=== PATIENT | male | born 1930 | race Caucasian/White ===

== ENCOUNTER 2017-06-10 14:53 | Emergency (ER) | payer MEDICARE, BC, OTHER ==
[2017-06-10 15:01] VITALS: TEMP 97.1
--- NOTE | 2017-06-10 15:32 | ED ---
General Adult HPI - General Chief complaint: Fall Stated complaint: Fall Time Seen by Provider: 06/10/17 15:00 Source: EMS, RN notes reviewed Mode of arrival: EMS Limitations: altered mental status - History of Present Illness Initial comments: This is an 87-year-old male presents emergency Department because he fell forward out of his wheelchair and bumped his head. According to EMS the patient did not lose consciousness. Patient is on Coumadin. There is no other history available at this time since the patient is unable to give any history which is his baseline. And there is no family with the patient. Per EMS the patient is a no code - Related Data Home Medications Medication Instructions Recorded Confirmed Acetaminophen [Tylenol] 650 mg PO Q6H PRN 06/10/17 06/10/17 Albuterol Nebulized [Ventolin 2.5 mg INHALATION RT-HS 06/10/17 06/10/17 Nebulized] Albuterol Nebulized [Ventolin 2.5 mg INHALATION RT-Q6H PRN 06/10/17 06/10/17 Nebulized] Aspirin [Children's Aspirin] 81 mg PO HS 06/10/17 06/10/17 Donepezil [Aricept] 10 mg PO HS 06/10/17 06/10/17 Furosemide [Lasix] 20 mg PO DAILY 06/10/17 06/10/17 Isosorbide Mononitrate ER [Imdur] 15 mg PO DAILY 06/10/17 06/10/17 Lisinopril [Zestril] 10 mg PO BID 06/10/17 06/10/17 Loratadine [Claritin] 10 mg PO DAILY 06/10/17 06/10/17 Medroxyprogesterone Acetate 150 mg IM Q14D 06/10/17 06/10/17 [Depo-Provera] Memantine [Namenda] 10 mg PO BID 06/10/17 06/10/17 Menthol [Biofreeze] 1 applic TOPICAL TID PRN 06/10/17 06/10/17 [place]-3 Fatty Acids/Fish Oil [Fish 1 cap PO BID 06/10/17 06/10/17 Oil 1,000 mg Softgel] Pravastatin Sodium [Pravachol] 80 mg PO HS 06/10/17 06/10/17 Sertraline [Zoloft] 50 mg PO HS 06/10/17 06/10/17 Tamsulosin [Flomax] 0.4 mg PO DAILY 06/10/17 06/10/17 Warfarin Sodium [Coumadin] 4 mg PO MOTUWETHFRSA 06/10/17 06/10/17 Warfarin [Coumadin] 0.5 mg PO MOTUWETHFRSA 06/10/17 06/10/17 Warfarin [Coumadin] 1 mg PO HS 06/10/17 06/10/17 Allergies Allergy/AdvReac Type Severity Reaction Status Date / Time morphine Allergy Unknown Verified 06/10/17 15:04 Review of Systems ROS Statement: Those systems with pertinent positive or pertinent negative responses have been documented in the HPI. ROS Other: All systems not noted in ROS Statement are negative. Past Medical History Past Medical History: Atrial Fibrillation, Heart Failure, COPD, Dementia, GERD/ Reflux, Hyperlipidemia, Hypertension, Prostate Disorder, Sleep Apnea/CPAP/BIPAP History of Any Multi-Drug Resistant Organisms: None Reported Past Surgical History: Unable to Obtain Past Psychological History: Unable to Obtain Smoking Status: Unknown if ever smoked Past Alcohol Use History: Unable to Obtain Past Drug Use History: Unable to Obtain General Exam - General Exam Comments Initial Comments: GENERAL: Patient is well-developed and well-nourished. Patient is nontoxic and well- hydrated and is in no acute distress. Patient has a hematoma on the left side of his forehead ENT: Neck is soft and supple. Moist mucous membranes. Neck has full range of motion without eliciting any pain. EYES: The sclera were anicteric and conjunctiva were pink and moist. Extraocular movements were intact and pupils were equal round and reactive to light. Eyelids were unremarkable. PULMONARY: Unlabored respirations. Good breath sounds bilaterally. No audible rales rhonchi or wheezing was noted. CARDIOVASCULAR: There is a regular rate and rhythm without any murmurs gallops or rubs. ABDOMEN: Soft and nontender with normal bowel sounds. SKIN: Skin is clear with no lesions or rashes and otherwise unremarkable. NEUROLOGIC: Patient is alert and oriented 0. Cranial nerves II through XII are grossly intact. MUSCULOSKELETAL: Normal extremities with adequate strength and full range of motion. No lower extremity swelling or edema. No calf tenderness. PSYCHIATRIC: Unable to assess Limitations: altered mental status Course Vital Signs 06/10/17 06/10/17 14:55 16:23 Temperature 97.1 F L Pulse Rate 64 68 Respiratory 16 20 Rate Blood Pressure 118/58 121/73 O2 Sat by Pulse 100 99 Oximetry Medical Decision Making - Medical Decision Making CT of the brain and C-spine showed no acute abnormality. - Lab Data Result diagrams: 06/10/17 15:39 06/10/17 15:39 Lab Results 06/10/17 06/10/17 06/10/17 Range/Units 15:39 15:39 15:39 WBC 5.1 (3.8-10.6) k/uL RBC 4.64 (4.30-5.90) m/uL Hgb 14.2 (13.0-17.5) gm/dL Hct 42.1 (39.0-53.0) % MCV 90.8 (80.0-100.0) fL MCH 30.6 (25.0-35.0) pg MCHC 33.8 (31.0-37.0) g/dL RDW 12.9 (11.5-15.5) % Plt Count 157 (150-450) k/uL Neutrophils % 76 % Lymphocytes % 15 % Monocytes % 5 % Eosinophils % 2 % Basophils % 1 % Neutrophils # 3.9 (1.3-7.7) k/uL Lymphocytes # 0.8 L (1.0-4.8) k/uL Monocytes # 0.2 (0-1.0) k/uL Eosinophils # 0.1 (0-0.7) k/uL Basophils # 0.0 (0-0.2) k/uL PT 25.4 H (9.0-12.0) sec INR 2.8 H (<1.2) APTT 30.3 H (22.0-30.0) sec Sodium 137 (137-145) mmol/L Potassium 3.9 (3.5-5.1) mmol/L Chloride 103 (98-107) mmol/L Carbon Dioxide 29 (22-30) mmol/L Anion Gap 5 mmol/L BUN 20 (9-20) mg/dL Creatinine 1.00 (0.66-1.25) mg/dL Est GFR (MDRD) Af Amer >60 (>60 ml/min/1.73 sqM) Est GFR (MDRD) Non-Af >60 (>60 ml/min/1.73 sqM) Glucose 97 (74-99) mg/dL Calcium 9.2 (8.4-10.2) mg/dL Total Bilirubin 0.6 (0.2-1.3) mg/dL AST 24 (17-59) U/L ALT 42 (21-72) U/L Alkaline Phosphatase 49 (38-126) U/L Total Protein 7.0 (6.3-8.2) g/dL Albumin 3.8 (3.5-5.0) g/dL Disposition Clinical Impression: Fall, Head injury Disposition: HOME SELF-CARE Condition: Good Instructions: Fall Prevention for Older Adults (ED), Concussion (ED) Referrals: Jayden Arthur MD [Primary Care Provider] - 1-2 days Time of Disposition: 16:59
[2017-06-10 15:46] LABS: Basophils % (A) 1 %; Eosinophils # (A) 0.1 k/uL (0-0.7); Eosinophils % (A) 2 %; HCT 42.1 % (39.0-53.0); HGB 14.2 gm/dL (13.0-17.5); Lymphocytes # (A) 0.8 k/uL (1.0-4.8); Lymphocytes % (A) 15 %; MCH 30.6 pg (25.0-35.0); MCHC 33.8 g/dL (31.0-37.0); MCV 90.8 fL (80.0-100.0); Monocytes # (A) 0.2 k/uL (0-1.0); Monocytes % (A) 5 %; Neutrophils # (A) 3.9 k/uL (1.3-7.7); Neutrophils % (A) 76 %; Platelet Count 157 k/uL (150-450); RBC 4.64 m/uL (4.30-5.90); RDW 12.9 % (11.5-15.5); WBC 5.1 k/uL (3.8-10.6)
[2017-06-10 16:00] LABS: ALT 42 U/L (21-72); AST 24 U/L (17-59); Albumin 3.8 g/dL (3.5-5.0); Alkaline Phosphatase 49 U/L (38-126); Anion Gap 5 mmol/L; Blood Urea Nitrogen 20 mg/dL (9-20); Calcium 9.2 mg/dL (8.4-10.2); Carbon Dioxide 29 mmol/L (22-30); Chloride 103 mmol/L (98-107); Glucose 97 mg/dL (74-99); INR 2.8 (<1.2); Partial Thromboplastin Time 30.3 sec (22.0-30.0); Potassium 3.9 mmol/L (3.5-5.1); Prothrombin Time 25.4 sec (9.0-12.0); Sodium 137 mmol/L (137-145); Total Bilirubin 0.6 mg/dL (0.2-1.3)
--- NOTE | 2017-06-10 16:58 | CT ---
EXAMINATION TYPE: CT brain tony huff DATE OF EXAM: 06/10/2017 COMPARISON: NONE HISTORY: Patient poor historian. Left frontal swelling and bruising on observation CT DLP: 2544.6 mGycm Automated exposure control for dose reduction was used. TECHNIQUE: CT scan of the head and cervical spine are performed without contrast. FINDINGS: There is diffuse cerebral cortical atrophy. There is enlargement of the ventricles. There is no mass effect nor midline shift. There is no sign of intracranial hemorrhage. There is hypodensi ty in the periventricular white matter. The calvarium is intact. There is some straightening of the cervical vertebra. There is moderate narrowing at C6-7 disc space with spurring. Posterior elements are intact. Skull base is intact. I see no fracture. IMPRESSION: Advanced cerebral atrophy. Chronic small vessel ischemia. No acute intracranial abnormality. Spondylotic changes in the cervical spine. No fracture seen.
[2017-06-10 17:27] VITALS: RESP 18
[2017-06-10 18:51] VITALS: BP 177/56; PULSE 63
== END 2017-06-10 19:12 | disposition home or self-care (01) ==
LOC: EC 14:53
DX: S00.83XA Contusion of other part of head, initial encounter (principal); R41.82 Altered mental status, unspecified; E78.5 Hyperlipidemia, unspecified; I11.0 Hypertensive heart disease with heart failure; I50.9 Heart failure, unspecified; J44.9 Chronic obstructive pulmonary disease, unspecified; N42.9 Disorder of prostate, unspecified; G47.30 Sleep apnea, unspecified; F03.90 Unspecified dementia, unspecified severity, without behavioral disturbance, psychotic disturbance, mood disturbance, and anxiety; Z79.01 Long term (current) use of anticoagulants; Z79.3 Long term (current) use of hormonal contraceptives; Z79.82 Long term (current) use of aspirin; Z79.899 Other long term (current) drug therapy; Z88.5 Allergy status to narcotic agent; Z99.89 Dependence on other enabling machines and devices; W05.0XXA Fall from non-moving wheelchair, initial encounter
CPT/HCPCS: 36415; 70450; 72125; 80053; 85025; 85610; 85730; 99284

== ENCOUNTER 2017-08-24 16:14 | Inpatient (IN) | payer MEDICARE, OTHER ==
[2017-08-24] MEDS ORDERED: SODIUM CHLORIDE 0.9% 1,000 ML IV ONE (16:48)
--- NOTE | 2017-08-24 16:51 | ED ---
General Adult HPI - General Chief complaint: Altered Mental Status Stated complaint: Altered mental staus Time Seen by Provider: 08/24/17 16:15 Source: EMS, RN notes reviewed Mode of arrival: EMS - History of Present Illness Initial comments: This is an 87-year-old male who was sent in from the care home because of altered mental status. Normally he is alert and oriented 2 today's alert and oriented 0. No other history is available this time and no one came with the patient. Patient is unable to give any history. - Related Data Home Medications Medication Instructions Recorded Confirmed Acetaminophen [Tylenol] 650 mg PO Q6H PRN 06/10/17 08/24/17 Albuterol Nebulized [Ventolin 2.5 mg INHALATION RT-HS 06/10/17 08/24/17 Nebulized] Albuterol Nebulized [Ventolin 2.5 mg INHALATION RT-Q6H PRN 06/10/17 08/24/17 Nebulized] Furosemide [Lasix] 20 mg PO DAILY 06/10/17 08/24/17 Isosorbide Mononitrate ER [Imdur] 15 mg PO DAILY 06/10/17 08/24/17 Lisinopril [Zestril] 10 mg PO BID 06/10/17 08/24/17 Medroxyprogesterone Acetate 150 mg IM Q14D 06/10/17 08/24/17 [Depo-Provera] Memantine [Namenda] 10 mg PO BID 06/10/17 08/24/17 Menthol [Biofreeze] 1 applic TOPICAL DAILY 06/10/17 08/24/17 [place]-3 Fatty Acids/Fish Oil [Fish 2 cap PO BID 06/10/17 08/24/17 Oil 1,000 mg Softgel] Pravastatin Sodium [Pravachol] 80 mg PO HS 06/10/17 08/24/17 Sertraline [Zoloft] 50 mg PO HS 06/10/17 08/24/17 Tamsulosin [Flomax] 0.4 mg PO DAILY 06/10/17 08/24/17 Warfarin Sodium [Coumadin] 4 mg PO MOTUWETHFRSA 06/10/17 08/24/17 Warfarin [Coumadin] 0.5 mg PO MOTUWETHFRSA 06/10/17 08/24/17 Aspirin 81 mg PO DAILY 08/24/17 08/24/17 Bisacodyl 10 mg RECTAL DAILY PRN 08/24/17 08/24/17 Magnesium Hydroxide [Milk of 2,400 mg PO DAILY PRN 08/24/17 08/24/17 Magnesia] Protonix Packets 40 mg PO DAILY 08/24/17 08/24/17 Allergies Allergy/AdvReac Type Severity Reaction Status Date / Time morphine Allergy Unknown Verified 08/24/17 16:41 Review of Systems ROS Statement: Those systems with pertinent positive or pertinent negative responses have been documented in the HPI. ROS Other: All systems not noted in ROS Statement are negative. Past Medical History Past Medical History: Atrial Fibrillation, Heart Failure, COPD, Dementia, GERD/ Reflux, Hyperlipidemia, Hypertension, Prostate Disorder, Sleep Apnea/CPAP/BIPAP History of Any Multi-Drug Resistant Organisms: None Reported Past Surgical History: Unable to Obtain Past Psychological History: Unable to Obtain Smoking Status: Unknown if ever smoked Past Alcohol Use History: Unable to Obtain Past Drug Use History: Unable to Obtain General Exam - General Exam Comments Initial Comments: GENERAL: Patient is well-developed and well-nourished. Patient is nontoxic and well- hydrated and is in no acute distress. Patient is sleeping and arouses to painful stimuli but does not answer questions and does not follow any commands ENT: Neck is soft and supple. No significant lymphadenopathy is noted. Oropharynx is clear. Moist mucous membranes. Neck has full range of motion without eliciting any pain. EYES: The sclera were anicteric and conjunctiva were pink and moist. Extraocular ocular motion is intact but pupils are pinpoint. Eyelids were unremarkable. PULMONARY: Unlabored respirations. Good breath sounds bilaterally. No audible rales rhonchi or wheezing was noted. CARDIOVASCULAR: Patient is an irregular rate. ABDOMEN: Soft and nontender with normal bowel sounds. No palpable organomegaly was noted. There is no palpable pulsatile mass. SKIN: Skin is clear with no lesions or rashes and otherwise unremarkable. NEUROLOGIC: Patient is arousable and opens his eyes but does not respond to any questions. MUSCULOSKELETAL: Normal extremities with adequate strength and full range of motion. No lower extremity swelling or edema. No calf tenderness. LYMPHATICS: No significant lymphadenopathy is noted PSYCHIATRIC: Unable to assess Course Vital Signs 08/24/17 08/24/17 08/24/17 16:15 17:24 18:30 Temperature 97.1 F L Pulse Rate 91 85 77 Respiratory 18 16 18 Rate Blood Pressure 97/56 103/59 114/56 O2 Sat by Pulse 99 100 100 Oximetry Medical Decision Making - Medical Decision Making EKG shows atrial fibrillation 70 bpm QRS is 142 QTC is 416 QTC is 449. Patient' s EKG shows a right bundle branch block. - Lab Data Result diagrams: 08/24/17 16:25 08/24/17 16:25 Lab Results 08/24/17 08/24/17 08/24/17 Range/Units 16:25 16:25 16:25 WBC 11.2 H (3.8-10.6) k/uL RBC 4.53 (4.30-5.90) m/uL Hgb 14.2 (13.0-17.5) gm/dL Hct 40.9 (39.0-53.0) % MCV 90.1 (80.0-100.0) fL MCH 31.4 (25.0-35.0) pg MCHC 34.8 (31.0-37.0) g/dL RDW 13.2 (11.5-15.5) % Plt Count 151 (150-450) k/uL Neutrophils % 92 % Lymphocytes % 3 % Monocytes % 4 % Eosinophils % 0 % Basophils % 0 % Neutrophils # 10.3 H (1.3-7.7) k/uL Lymphocytes # 0.3 L (1.0-4.8) k/uL Monocytes # 0.4 (0-1.0) k/uL Eosinophils # 0.0 (0-0.7) k/uL Basophils # 0.0 (0-0.2) k/uL PT (9.0-12.0) sec INR (<1.2) APTT (22.0-30.0) sec Sodium 145 (137-145) mmol/L Potassium 4.9 (3.5-5.1) mmol/L Chloride 111 H (98-107) mmol/L Carbon Dioxide 21 L (22-30) mmol/L Anion Gap 13 mmol/L BUN 49 H (9-20) mg/dL Creatinine 2.28 H (0.66-1.25) mg/dL Est GFR (CKD-EPI)AfAm 29 (>60 ml/min/1.73 sqM) Est GFR (CKD-EPI)NonAf 25 (>60 ml/min/1.73 sqM) Glucose 112 H (74-99) mg/dL POC Glucose (mg/dL) (75-99) mg/dL POC Glu Barrel Roller Operator ID Calcium 9.0 (8.4-10.2) mg/dL Total Bilirubin 1.0 (0.2-1.3) mg/dL AST 81 H (17-59) U/L ALT 36 (21-72) U/L Alkaline Phosphatase 48 (38-126) U/L Total Creatine Kinase 1309 H (55-170) U/L CK-MB (CK-2) 13.1 H* (0.0-2.4) ng/mL CK-MB (CK-2) Rel Index 1.0 Troponin I 0.053 H* (0.000-0.034) ng/mL Total Protein 7.5 (6.3-8.2) g/dL Albumin 3.7 (3.5-5.0) g/dL Urine Color Urine Appearance (Clear) Urine pH (5.0-8.0) Ur Specific [place] (1.001-1.035) Urine Protein (Negative) Urine Glucose (UA) (Negative) Urine Ketones (Negative) Urine Blood (Negative) Urine Nitrite (Negative) Urine Bilirubin (Negative) Urine Urobilinogen (<2.0) mg/dL Ur Leukocyte Esterase (Negative) Urine RBC (0-5) /hpf Urine WBC (0-5) /hpf Urine WBC Clumps (None) /hpf Ur Squamous Epith Cells (0-4) /hpf Urine Bacteria (None) /hpf Urine Yeast (Budding) (None) /hpf Urine Opiates Screen (NotDetected) Ur Oxycodone Screen (NotDetected) Urine Methadone Screen (NotDetected) Ur Propoxyphene Screen (NotDetected) Ur Barbiturates Screen (NotDetected) U Tricyclic Antidepress (NotDetected) Ur Phencyclidine Scrn (NotDetected) Ur Amphetamines Screen (NotDetected) U Methamphetamines Scrn (NotDetected) U Benzodiazepines Scrn (NotDetected) Urine Cocaine Screen (NotDetected) U Marijuana (THC) Screen (NotDetected) 03/15/18 03/15/18 03/15/18 Range/Units 16:25 17:00 17:00 WBC (3.8-10.6) k/uL RBC (4.30-5.90) m/uL Hgb (13.0-17.5) gm/dL Hct (39.0-53.0) % MCV (80.0-100.0) fL MCH (25.0-35.0) pg MCHC (31.0-37.0) g/dL RDW (11.5-15.5) % Plt Count (150-450) k/uL Neutrophils % % Lymphocytes % % Monocytes % % Eosinophils % % Basophils % % Neutrophils # (1.3-7.7) k/uL Lymphocytes # (1.0-4.8) k/uL Monocytes # (0-1.0) k/uL Eosinophils # (0-0.7) k/uL Basophils # (0-0.2) k/uL PT 25.6 H (9.0-12.0) sec INR 2.9 H (<1.2) APTT 33.7 H (22.0-30.0) sec Sodium (137-145) mmol/L Potassium (3.5-5.1) mmol/L Chloride (98-107) mmol/L Carbon Dioxide (22-30) mmol/L Anion Gap mmol/L BUN (9-20) mg/dL Creatinine (0.66-1.25) mg/dL Est GFR (CKD-EPI)AfAm (>60 ml/min/1.73 sqM) Est GFR (CKD-EPI)NonAf (>60 ml/min/1.73 sqM) Glucose (74-99) mg/dL POC Glucose (mg/dL) (75-99) mg/dL POC Glu Barrel Roller Operator ID Calcium (8.4-10.2) mg/dL Total Bilirubin (0.2-1.3) mg/dL AST (17-59) U/L ALT (21-72) U/L Alkaline Phosphatase (38-126) U/L Total Creatine Kinase (55-170) U/L CK-MB (CK-2) (0.0-2.4) ng/mL CK-MB (CK-2) Rel Index Troponin I (0.000-0.034) ng/mL Total Protein (6.3-8.2) g/dL Albumin (3.5-5.0) g/dL Urine Color Yellow Urine Appearance Turbid (Clear) Urine pH 5.5 (5.0-8.0) Ur Specific [place] 1.020 (1.001-1.035) Urine Protein 2+ H (Negative) Urine Glucose (UA) Negative (Negative) Urine Ketones Negative (Negative) Urine Blood Moderate H (Negative) Urine Nitrite Negative (Negative) Urine Bilirubin Negative (Negative) Urine Urobilinogen 3.0 (<2.0) mg/dL Ur Leukocyte Esterase Large H (Negative) Urine RBC 17 H (0-5) /hpf Urine WBC >182 H (0-5) /hpf Urine WBC Clumps Many H (None) /hpf Ur Squamous Epith Cells 3 (0-4) /hpf Urine Bacteria Occasional H (None) /hpf Urine Yeast (Budding) Moderate H (None) /hpf Urine Opiates Screen Not Detected (NotDetected) Ur Oxycodone Screen Not Detected (NotDetected) Urine Methadone Screen Not Detected (NotDetected) Ur Propoxyphene Screen Not Detected (NotDetected) Ur Barbiturates Screen Not Detected (NotDetected) U Tricyclic Antidepress Not Detected (NotDetected) Ur Phencyclidine Scrn Not Detected (NotDetected) Ur Amphetamines Screen Not Detected (NotDetected) U Methamphetamines Scrn Not Detected (NotDetected) U Benzodiazepines Scrn Not Detected (NotDetected) Urine Cocaine Screen Not Detected (NotDetected) U Marijuana (THC) Screen Not Detected (NotDetected) 08/24/17 Range/Units 17:02 WBC (3.8-10.6) k/uL RBC (4.30-5.90) m/uL Hgb (13.0-17.5) gm/dL Hct (39.0-53.0) % MCV (80.0-100.0) fL MCH (25.0-35.0) pg MCHC (31.0-37.0) g/dL RDW (11.5-15.5) % Plt Count (150-450) k/uL Neutrophils % % Lymphocytes % % Monocytes % % Eosinophils % % Basophils % % Neutrophils # (1.3-7.7) k/uL Lymphocytes # (1.0-4.8) k/uL Monocytes # (0-1.0) k/uL Eosinophils # (0-0.7) k/uL Basophils # (0-0.2) k/uL PT (9.0-12.0) sec INR (<1.2) APTT (22.0-30.0) sec Sodium (137-145) mmol/L Potassium (3.5-5.1) mmol/L Chloride (98-107) mmol/L Carbon Dioxide (22-30) mmol/L Anion Gap mmol/L BUN (9-20) mg/dL Creatinine (0.66-1.25) mg/dL Est GFR (CKD-EPI)AfAm (>60 ml/min/1.73 sqM) Est GFR (CKD-EPI)NonAf (>60 ml/min/1.73 sqM) Glucose (74-99) mg/dL POC Glucose (mg/dL) 98 (75-99) mg/dL POC Glu Barrel Roller Operator ID Rod Elizondo Calcium (8.4-10.2) mg/dL Total Bilirubin (0.2-1.3) mg/dL AST (17-59) U/L ALT (21-72) U/L Alkaline Phosphatase (38-126) U/L Total Creatine Kinase (55-170) U/L CK-MB (CK-2) (0.0-2.4) ng/mL CK-MB (CK-2) Rel Index Troponin I (0.000-0.034) ng/mL Total Protein (6.3-8.2) g/dL Albumin (3.5-5.0) g/dL Urine Color Urine Appearance (Clear) Urine pH (5.0-8.0) Ur Specific [place] (1.001-1.035) Urine Protein (Negative) Urine Glucose (UA) (Negative) Urine Ketones (Negative) Urine Blood (Negative) Urine Nitrite (Negative) Urine Bilirubin (Negative) Urine Urobilinogen (<2.0) mg/dL Ur Leukocyte Esterase (Negative) Urine RBC (0-5) /hpf Urine WBC (0-5) /hpf Urine WBC Clumps (None) /hpf Ur Squamous Epith Cells (0-4) /hpf Urine Bacteria (None) /hpf Urine Yeast (Budding) (None) /hpf Urine Opiates Screen (NotDetected) Ur Oxycodone Screen (NotDetected) Urine Methadone Screen (NotDetected) Ur Propoxyphene Screen (NotDetected) Ur Barbiturates Screen (NotDetected) U Tricyclic Antidepress (NotDetected) Ur Phencyclidine Scrn (NotDetected) Ur Amphetamines Screen (NotDetected) U Methamphetamines Scrn (NotDetected) U Benzodiazepines Scrn (NotDetected) Urine Cocaine Screen (NotDetected) U Marijuana (THC) Screen (NotDetected) Disposition Clinical Impression: Altered mental status, Urinary tract infection, Sepsis Disposition: ADMITTED IP TO THIS HOSP Referrals: Jayden Arthur MD [Primary Care Provider] - 1-2 days Time of Disposition: 19:23
[2017-08-24 17:04] LABS: Glucose,Whole Blood 98 mg/dL (75-99)
[2017-08-24 17:08] LABS: Basophils % (A) 0 %; Eosinophils % (A) 0 %; HCT 40.9 % (39.0-53.0); HGB 14.2 gm/dL (13.0-17.5); Lymphocytes # (A) 0.3 k/uL (1.0-4.8); Lymphocytes % (A) 3 %; MCH 31.4 pg (25.0-35.0); MCHC 34.8 g/dL (31.0-37.0); MCV 90.1 fL (80.0-100.0); Mean Platelet Volume 8.2; Monocytes # (A) 0.4 k/uL (0-1.0); Monocytes % (A) 4 %; Neutrophils # (A) 10.3 k/uL (1.3-7.7); Neutrophils % (A) 92 %; Platelet Count 151 k/uL (150-450); RBC 4.53 m/uL (4.30-5.90); RDW 13.2 % (11.5-15.5); WBC 11.2 k/uL (3.8-10.6)
[2017-08-24 17:13] LABS: INR 2.9 (<1.2); Partial Thromboplastin Time 33.7 sec (22.0-30.0); Prothrombin Time 25.6 sec (9.0-12.0)
[2017-08-24 17:16] LABS: Albumin 3.7 g/dL (3.5-5.0); Total Protein 7.5 g/dL (6.3-8.2)
[2017-08-24 17:16] LABS: Appearance,Urine Turbid (Clear); Bacteria,Urine Occasional /hpf; Bilirubin,Urine Negative (Negative); Blood,Urine Moderate (Negative); Budding Yeast,Urine Moderate /hpf; Color,Urine Yellow; Glucose,Urine (UA) Negative (Negative); Ketones,Urine Negative (Negative); Leukocyte Esterase,Urine Large (Negative); Nitrite,Urine Negative (Negative); PH, Urine 5.5 (5.0-8.0); Protein,Urine 2+ (Negative); RBC,Urine 17 /hpf (0-5); Squamous Epithelial Cell,Urine 3 /hpf (0-4); WBC,Urine >182 /hpf (0-5)
[2017-08-24 17:17] LABS: Potassium 4.9 mmol/L (3.5-5.1)
[2017-08-24 17:23] LABS: Amphetamine Screen,Urine Not Detected (NotDetected); Barbiturate Screen,Urine Not Detected (NotDetected); Benzodiazepines Screen,Urine Not Detected (NotDetected); Cocaine Screen,Urine Not Detected (NotDetected); Methadone Screen, Urine Not Detected (NotDetected); Opiate Screen,Urine Not Detected (NotDetected); Oxycodone Screen, Urine Not Detected (NotDetected); Phencyclidine Screen,Urine Not Detected (NotDetected); Tricyclic Antidepressant,Urine Not Detected (NotDetected); Urn Cannabinoid Scrn Not Detected (NotDetected)
[2017-08-24 17:33] LABS: Creatine Kinase MB 13.1 ng/mL (0.0-2.4); Troponin I 0.053 ng/mL (0.000-0.034)
[2017-08-24] MEDS ORDERED: cefTRIAXone IN SWFI 1,000 MG/10 ML SYRINGE IVP STA (17:50)
--- NOTE | 2017-08-24 17:51 | CT ---
EXAMINATION TYPE: CT brain wo con DATE OF EXAM: 08/24/2017 COMPARISON: 06/10/2017 HISTORY: Altered mental status. CT DLP: 1047.4 mGycm Automated exposure control for dose reduction was used. FINDINGS: There is moderate diffuse cerebral atrophy. There is no mass effect nor midline shift. There is no si gn of intracranial hemorrhage. There is hypodensity in the periventricular white matter. IMPRESSION: CEREBRAL ATROPHY. CHRONIC SMALL VESSEL ISCHEMIA. NO CHANGE. ATROPHY IS MORE SEVERE IN THE TEMPORAL LO BES.
--- NOTE | 2017-08-24 17:52 | XR ---
EXAMINATION TYPE: XR chest 2V DATE OF EXAM: 08/24/2017 COMPARISON: NONE HISTORY: Altered mental status heart failure TECHNIQUE: Frontal and lateral views of the chest are obtained. FINDINGS: There is no heart failure nor confluent pneumonic infiltrate. There are sternal wires. The re are chest leads. Costophrenic angles are clear. Bony thorax appears intact. IMPRESSION: No active cardiopulmonary disease.
[2017-08-24] MEDS: SODIUM CHLORIDE 0.9% 1,000 ML IV ONE (19:49)
[2017-08-25] MEDS: SODIUM CHLORIDE 0.9% 1,000 ML IV ONE (08:14)
[2017-08-25] MEDS: cefTRIAXone IN SWFI 1,000 MG/10 ML SYRINGE IVP SCH (08:30)
[2017-08-25] MEDS ORDERED: ALBUTEROL NEBULIZED 2.5 MG/3 ML INHALATION PRN (18:03)
[2017-08-25] MEDS ORDERED: MAGNESIUM HYDROXIDE 2,400 MG/10 ML CUP PO PRN (18:03)
[2017-08-25] MEDS ORDERED: BISACODYL 10 MG SUPP RECTAL PRN (18:03)
[2017-08-25] MEDS ORDERED: ACETAMINOPHEN TAB 325 MG TAB PO PRN (18:03)
[2017-08-25] MEDS ORDERED: medroxyPROGESTERone 150 MG/ML 1ML VIAL IM PRN (18:15)
[2017-08-25] MEDS ORDERED: WARFARIN 0.5 MG TAB PO SCH (18:15)
[2017-08-25] MEDS: ALBUTEROL NEBULIZED 2.5 MG/3 ML INHALATION SCH (19:12)
[2017-08-25] MEDS: WARFARIN 2 MG TAB PO SCH (20:03)
[2017-08-25] MEDS: PRAVASTATIN SODIUM 80 MG TAB PO SCH (20:03)
[2017-08-25] MEDS: SERTRALINE 50 MG TAB PO SCH (20:03)
[2017-08-25] MEDS: MEMANTINE 10 MG TAB PO SCH (20:06)
--- NOTE | 2017-08-25 20:22 | HP ---
HISTORY AND PHYSICAL DATE OF SERVICE: 08/25/2017 CHIEF COMPLAINTS: Change in mental status. HISTORY OF PRESENT ILLNESS: This 87-year-old gentleman with a past history atrial fibrillation ablation, CHF, COPD, dementia, GERD, hypertension, hyperlipidemia being followed by Dr. Arthur in [facility] was admitted with change in mental status. The patient is confused and unable to give coherent history. Patient previously was alert, oriented x2, but he was confused and disoriented according to the staff and the patient taken to [facility], features of UTI was noted, UTI with sepsis suspected. Patient started on broad-spectrum IV antibiotics. A detailed history could not be taken. Most of the history is taken from my discussion with staff and review of chart at this time. PAST MEDICAL HISTORY: History of CHF, history of atrial ablation, COPD, dementia, GERD, hypertension, hyperlipidemia, prostate disorder, sleep apnea. MEDICATIONS: Prior to admission include home medications are: 1. Coumadin 0.5 mg p.o. Monday, Monday, Monday, , Monday, Monday. 2. Coumadin 4 mg Monday, Monday, Monday, , Monday, Monday. 3. Flomax 0.4 daily. 4. Zoloft 50 mg p.o. q.h.s. 5. Protonix 40 mg b.i.d. 6. Pravachol 80 mg q.h.s. 7. Fish oil 2 capsules p.o. b.i.d. 8. Biofreeze 1 application daily. 9. Namenda 10 mg p.o. b.i.d. 10.Depo-Provera 150 mg IM q.14 days. 11.Milk of Magnesia 2.4 g p.o. daily p.r.n. 12.Zestril 10 mg p.o. b.i.d. 13.Imdur 15 mg p.o. daily. 14.Lasix 20 mg p.o. daily. 15.Bisacodyl 10 mg rectally daily p.r.n. 16.Aspirin 81 mg p.o. daily. 17.Ventolin nebulizer 2.5 q.h.s. and 2.5 mg every 6 hours p.r.n. 18.Tylenol 650 q.6 p.r.n. ALLERGIES: MORPHINE. FAMILY HISTORY, SOCIAL HISTORY AND REVIEW OF SYSTEMS: Could not be taken because of the patient's change in mental status. PHYSICAL EXAM: The patient is conscious, confused. Pulse 79, blood pressure 129/64, respirations 20, temperature 97.2, pulse ox 97% on 2 L. HEENT: Conjunctivae normal. Oral mucosa moist. NECK: No jugular venous distention. No carotid bruit. No lymph node enlargement. CARDIOVASCULAR: S1, S2. No S3, no S4. RESPIRATORY: Breath sounds diminished in the bases. A few scattered rhonchi and crackles. ABDOMEN: Soft, nontender. No mass palpable. LEGS: No edema, no cyanosis. NERVOUS SYSTEM: Diffusely weak. SKIN: No ulcer, rash, bleeding. LYMPHATIC: No lymphadenopathy in the neck, axillae, groin. JOINTS: No actively deforming arthropathy. LABS: WBC 11.9, hemoglobin is 14.2, INR 2.9, and PTT is 25.6, creatinine 2.28, plasma lactic acid 2.8. Troponin 0.053 and creatine kinase is 1309. UA noted. ASSESSMENT: 1. Acute urinary tract infection with sepsis present on admission. 2. Change in mental status, acute metabolic encephalopathy secondary to urinary tract infection. 3. Renal failure acute on chronic possibly. 4. Troponin 0.05 indeterminate. 5. Increased WBC. 6. Coumadin monitoring. 7. History atrial fibrillation. 8. History of chronic obstructive pulmonary disease. 9. History of atrial fibrillation, chronic, persistent. 10.Right bundle branch block in the EKG. 11.Gastroesophageal reflux disease. 12.Hyperlipidemia. 13.Hypertension. 14.Dementia. 15.Chronic obstructive pulmonary disease. 16.Prostate disorder. 17.Hypertension. 18.Sleep apnea. 19.NO CODE, NO CPR, NO VENT. RECOMMENDATIONS AND DISCUSSION: This 87-year-old gentleman who presented with multiple complex medical issues, will monitor the patient closely. Continue the current management and will initiate broad- spectrum IV antibiotics. Obtain cultures. I would also recommend monitor PT/INR closely. IV fluids cautiously. The patient is NO CODE. The prognosis guarded because of multiple complex medical issues. Further recommendations to follow. MMODL / IJN: [id number] /
[2017-08-25] MEDS: SODIUM CHLORIDE 0.9% 1,000 ML IV SCH ×2 (20:33→23:21)
[2017-08-25] MEDS: LISINOPRIL 10 MG TAB PO SCH (20:33)
[2017-08-25] MEDS ORDERED: NON-FORMULARY DRUG (Omega-3 Fatty Acids/Fish Oil [Fish Oil 1,000 Mg Softgel] 2 CAP) PO SCH (21:00)
[2017-08-25] MEDS: WARFARIN 1 MG TAB PO SCH (23:16)
[2017-08-26 06:08] LABS: INR 3.5 (<1.2)
[2017-08-26 06:11] LABS: Basophils % (A) 0 %; Eosinophils # (A) 0.1 k/uL (0-0.7); Eosinophils % (A) 1 %; HGB 11.4 gm/dL (13.0-17.5); Lymphocytes # (A) 0.6 k/uL (1.0-4.8); Lymphocytes % (A) 10 %; MCH 29.5 pg (25.0-35.0); MCHC 31.7 g/dL (31.0-37.0); MCV 93.3 fL (80.0-100.0); Mean Platelet Volume 7.8; Monocytes # (A) 0.2 k/uL (0-1.0); Monocytes % (A) 4 %; Neutrophils # (A) 5.1 k/uL (1.3-7.7); Neutrophils % (A) 84 %; Platelet Count 144 k/uL (150-450); RBC 3.86 m/uL (4.30-5.90); RDW 13.2 % (11.5-15.5); WBC 6.1 k/uL (3.8-10.6)
[2017-08-26 06:14] LABS: Calcium 8.7 mg/dL (8.4-10.2); Potassium 4.4 mmol/L (3.5-5.1)
[2017-08-26] MEDS: PANTOPRAZOLE SODIUM 40 MG GRANULE PKT PO SCH (06:33)
[2017-08-26] MEDS: cefTRIAXone IN SWFI 1,000 MG/10 ML SYRINGE IVP SCH (08:56)
[2017-08-26] MEDS: FUROSEMIDE 20 MG TAB PO SCH (12:07)
[2017-08-26] MEDS: ISOSORBIDE MONONITRATE ER 15 MG TAB PO SCH (12:07)
[2017-08-26] MEDS: TAMSULOSIN 0.4 MG CAP.ER.24H PO SCH (12:07)
[2017-08-26] MEDS: LISINOPRIL 10 MG TAB PO SCH ×2 (12:07→20:19)
[2017-08-26] MEDS: MEMANTINE 10 MG TAB PO SCH ×2 (12:07→20:20)
[2017-08-26] MEDS: METHYL SALICYLATE/MENTHOL CREAM 5 OZ TOPICAL SCH (12:07)
[2017-08-26] MEDS: ASPIRIN 81 MG PO SCH (12:08)
[2017-08-26] MEDS: DEXTROSE 5% IN WATER 1,000 ML IV SCH (16:18)
[2017-08-26] MEDS: WARFARIN 2 MG TAB PO SCH ×2 (16:22→16:26)
--- NOTE | 2017-08-26 19:05 | PN ---
PROGRESS NOTE DATE OF SERVICE: 08/26/2017 This 87-year-old gentleman who was admitted with change in mental status, possibly acute UTI with sepsis. The patient still continues to be confused. The patient is hyponatremic. Patient is being closely monitored on telemetry and fluid management is being monitored at this time. PAST MEDICAL HISTORY: Reviewed. REVIEW OF SYSTEMS: Could not be taken, as the patient is confused. CURRENT MEDICATIONS: Reviewed, include: 1. Tylenol 650 p.r.n. 2. Ventolin 2.5 q.i.d. and p.r.n. 3. Aspirin 81 mg. 5. Rocephin 1 g daily. 6. Lasix 10 mg p.o. daily. 7. Imdur. 8. Zestril 10 mg p.o. b.i.d. 9. Depo-Medrol. 10.Aranesp 0.25. 11.Protonix. 12.Prevacid. 13.Zoloft. 14.Flomax and. 15.Coumadin. PHYSICAL EXAM: Patient is conscious, but confused. Pulse 60, blood pressure is 126/95, respirations 16, temperature is normal, pulse ox 95% on room air. HEENT: Conjunctivae normal. Oral mucosa dry. NECK: No jugular venous distention. No carotid bruits. No lymph node enlargement. CARDIOVASCULAR: S1, S2 muffled. RESPIRATORY: Breath sounds diminished in the bases. A few scattered rhonchi. No crackles. ABDOMEN: Soft, nontender. LEGS: No edema. NERVOUS SYSTEM: Diffusely weak. LABS: WBC 6, hemoglobin is 11.8, INR 3.4. Sodium 151 and chloride is 121. Other labs are noted. Cultures are pending at this time. Urine culture: Gram-negative bacilli. ASSESSMENT: 1. Acute urinary tract infection with sepsis, present on admission. 2. Change in mental status, acute metabolic encephalopathy secondary to urinary tract infection and sepsis, present on admission. 3. Hypernatremia, dehydration. 4. Renal failure, acute on chronic possibly with chronic kidney disease, stage 3. 5. Troponin 0.05, indeterminate. 6. Increased WBC. 7. Coumadin monitoring with mild Coumadin coagulopathy. 8. History of atrial fibrillation; chronic, persistent. 9. History of chronic obstructive pulmonary disease. 10.Right bundle branch block on EKG. 11.Gastroesophageal reflux disease. 12.Hypertension. 13.History of hyperlipidemia. 14.History of dementia. 15.Chronic obstructive pulmonary disease. 16.History of prostate disorder. 17.Sleep apnea. 18.NO CODE, NO CPR, NO VENT. RECOMMENDATIONS AND DISCUSSION: Recommend to continue current medical management, symmetric treatment. Otherwise at this time, I will hold Coumadin today. Otherwise, continue the rest of the medications. Change the fluid to D5 water. Repeat labs. Otherwise, prognosis guarded because of multiple complex medical issues and further recommendations to follow. See orders for further details. MMODL / IJN: [id number] / BEBETO
[2017-08-26] MEDS: ALBUTEROL NEBULIZED 2.5 MG/3 ML INHALATION SCH (19:30)
[2017-08-26] MEDS: PRAVASTATIN SODIUM 80 MG TAB PO SCH (20:19)
[2017-08-26] MEDS: SERTRALINE 50 MG TAB PO SCH (20:20)
[2017-08-26] MEDS: WARFARIN 1 MG TAB PO SCH (20:20)
[2017-08-26] MEDS: SODIUM CHLORIDE 0.9% 1,000 ML IV SCH (20:53)
[2017-08-27] MEDS: DEXTROSE 5% IN WATER 1,000 ML IV SCH ×2 (05:13→16:13)
[2017-08-27] MEDS: PANTOPRAZOLE SODIUM 40 MG GRANULE PKT PO SCH (06:14)
[2017-08-27 06:29] LABS: Basophils % (A) 0 %; Eosinophils # (A) 0.1 k/uL (0-0.7); Eosinophils % (A) 2 %; HCT 36.3 % (39.0-53.0); HGB 11.7 gm/dL (13.0-17.5); Lymphocytes # (A) 0.8 k/uL (1.0-4.8); Lymphocytes % (A) 15 %; MCHC 32.4 g/dL (31.0-37.0); MCV 92.7 fL (80.0-100.0); Monocytes # (A) 0.2 k/uL (0-1.0); Monocytes % (A) 4 %; Neutrophils # (A) 4.1 k/uL (1.3-7.7); Neutrophils % (A) 76 %; Platelet Count 153 k/uL (150-450); RBC 3.91 m/uL (4.30-5.90); RDW 13.1 % (11.5-15.5); WBC 5.4 k/uL (3.8-10.6)
[2017-08-27 06:41] LABS: Calcium 8.8 mg/dL (8.4-10.2); Potassium 4.1 mmol/L (3.5-5.1)
[2017-08-27 06:47] LABS: Prothrombin Time 57.6 sec (9.0-12.0)
[2017-08-27 06:54] LABS: INR 6.3 (<1.2)
[2017-08-27 07:35] LABS: Prothrombin Time 60.2 sec (9.0-12.0)
[2017-08-27 07:48] LABS: INR 6.6 (<1.2)
[2017-08-27] MEDS: cefTRIAXone IN SWFI 1,000 MG/10 ML SYRINGE IVP SCH (08:31)
[2017-08-27] MEDS: METHYL SALICYLATE/MENTHOL CREAM 5 OZ TOPICAL SCH (08:31)
[2017-08-27] MEDS: FUROSEMIDE 20 MG TAB PO SCH (16:12)
[2017-08-27] MEDS: ASPIRIN 81 MG PO SCH (16:12)
[2017-08-27] MEDS: ISOSORBIDE MONONITRATE ER 15 MG TAB PO SCH (16:13)
[2017-08-27] MEDS: TAMSULOSIN 0.4 MG CAP.ER.24H PO SCH (16:13)
[2017-08-27] MEDS: LISINOPRIL 10 MG TAB PO SCH ×2 (16:13→22:01)
[2017-08-27] MEDS: MEMANTINE 10 MG TAB PO SCH ×2 (16:13→22:01)
--- NOTE | 2017-08-27 17:24 | PN ---
PROGRESS NOTE DATE OF SERVICE: 08/27/2017 This 87-year-old gentleman admitted with change in mental status, possibly acute UTI and sepsis. The patient is confused. Patient had baseline dementia. According to the family the patient was initially in [facility] and because of some issues with his behavior probably related dementia, patient was transferred to [facility], but apparently the ECF in [place] is willing to take him provided the patient is in hospice. Currently the patient is not improving and according to the family for the last 6 months the patient has been rapidly declining and with very poor quality of life. PAST MEDICAL HISTORY: Reviewed. REVIEW OF SYSTEMS: Could not be taken. CURRENT MEDICATIONS: Reviewed and include: 1. Tylenol 650 q.6h p.r.n. 2. Ventolin 2.5 q.6h p.r.n. 3. Aspirin 81 mg p.o. daily. 4. Dulcolax 10 mg. 5. Rocephin 1 g IV daily. 6. Lasix 20 mg daily. 7. Imdur 50 mg daily. 8. Zestril 10 mg p.o. b.i.d. 9. Milk of magnesia. 10.Namenda. 11.Multivitamins. 12.Protonix. 13.Zoloft. 14.Flomax. 15.Coumadin. PHYSICAL EXAM: Patient is stuporous. Pulse 74, blood pressure 149/67, respirations 18, temperature is normal. Pulse ox 94% on room air. HEENT: Conjunctivae normal. Oral mucosa moist. NECK: No jugular venous distention. No carotid bruit. No lymph node enlargement. CARDIOVASCULAR: S1, S2. No S3, no S4. RESPIRATORY: Breath sounds diminished in the bases. A few scattered rhonchi and crackles. ABDOMEN: Soft, nontender. No mass palpable. LEGS: No edema, no swelling. NERVOUS SYSTEM: Diffusely weak. LAB STUDIES: WBC 5.5, hemoglobin 11.8, INR 6.3. ASSESSMENT: 1. Urinary tract infection with sepsis, present on admission. 2. Change in mental status, acute metabolic encephalopathy with acute on chronic metabolic encephalopathy secondary to urinary tract infection with sepsis with Morganella morganii. 3. Dementia. 4. Hyponatremia with dehydration, present on admission. 5. Renal failure acute on chronic possibly chronic kidney disease stage III. 6. Troponin 0.05, indeterminate. 7. Increased WBC. 8. Coumadin monitoring with mild Coumadin coagulopathy. 9. History atrial fibrillation, chronic, persistent. 10.Chronic obstructive pulmonary disease. 11.Right bundle branch block in EKG. 12.Gastroesophageal reflux disease. 13.Hypertension. 14.Hyperlipidemia. 15.History of dementia. 16.History of chronic obstructive pulmonary disease. 17.History of prostate disorder. 18.Sleep apnea. 19.NO CODE, NO CPR, NO VENT. RECOMMENDATIONS AND DISCUSSION: In this 87-year-old gentleman who presented with multiple medical problems, will monitor the patient closely. Continue the current management and symptomatic treatment. Otherwise I would recommend to continue the medication for now. The urine culture showed Morganella morganii, which was sensitive to ceftriaxone. I discussed the case at length with the and daughter at the bedside regarding the quality of care and the patient currently NO CODE, but the expressed wishes to be transitioned for the patient to be hospice which seems to be entirely appropriate at this time. I recommend to continue work with case aide and social media marketing analyst for arrange hosp[facility] as per family's convenience. Once again, the prognosis guarded. Discussed with the family at length who understand and agrees. MMODL / IJN: [id number] /
[2017-08-27] MEDS: ALBUTEROL NEBULIZED 2.5 MG/3 ML INHALATION SCH (19:28)
[2017-08-27] MEDS: SERTRALINE 50 MG TAB PO SCH (22:01)
[2017-08-27] MEDS: PRAVASTATIN SODIUM 80 MG TAB PO SCH (22:01)
[2017-08-28 04:23] VITALS: RESP 18
[2017-08-28] MEDS: PANTOPRAZOLE SODIUM 40 MG GRANULE PKT PO SCH (06:04)
[2017-08-28] MEDS: DEXTROSE 5% IN WATER 1,000 ML IV SCH (06:04)
[2017-08-28 06:17] LABS: Basophils % (A) 1 %; Eosinophils # (A) 0.2 k/uL (0-0.7); Eosinophils % (A) 4 %; HCT 36.1 % (39.0-53.0); HGB 12.4 gm/dL (13.0-17.5); Lymphocytes # (A) 0.8 k/uL (1.0-4.8); Lymphocytes % (A) 16 %; MCH 30.3 pg (25.0-35.0); MCHC 34.4 g/dL (31.0-37.0); MCV 88.1 fL (80.0-100.0); Mean Platelet Volume 7.1; Monocytes # (A) 0.2 k/uL (0-1.0); Monocytes % (A) 4 %; Neutrophils # (A) 3.5 k/uL (1.3-7.7); Neutrophils % (A) 73 %; Platelet Count 158 k/uL (150-450); RDW 12.7 % (11.5-15.5); WBC 4.9 k/uL (3.8-10.6)
[2017-08-28 06:25] LABS: Prothrombin Time 59.2 sec (9.0-12.0)
[2017-08-28 06:27] LABS: INR 6.5 (<1.2)
[2017-08-28 06:33] LABS: Blood Urea Nitrogen 17 mg/dL (9-20); Calcium 8.3 mg/dL (8.4-10.2); Chloride 109 mmol/L (98-107); Glucose 90 mg/dL (74-99); Potassium 3.7 mmol/L (3.5-5.1); Sodium 140 mmol/L (137-145)
[2017-08-28 06:34] LABS: Anion Gap 8 mmol/L; Carbon Dioxide 23 mmol/L (22-30)
[2017-08-28] MEDS: cefTRIAXone IN SWFI 1,000 MG/10 ML SYRINGE IVP SCH (10:36)
--- NOTE | 2017-08-28 11:13 | P.DS ---
Providers Date of admission: 08/24/17 19:23 Expected date of discharge: 08/28/17 Attending physician: Raji Alonso Primary care physician: Jayden [facility] Course: Final Diagnoses: 1 acute UTI with sepsis, present on admission 2. Change in mental status, acute on chronic metabolic encephalopathy secondary to UTI with sepsis with Morganella Morgagni 3. Dementia 4. Hypernatremia with dehydration, present on admission 5. Acute on chronic renal failure, possibly stage III 6. Troponin 0.05 indeterminate 7. Coumadin coagulopathy, Coumadin remains on hold. 8. History of atrial fibrillation, chronic persistent 9. COPD 10. Right bundle branch block per EKG 11. Gastroesophageal reflux disease 12. Hypertension 13. Hyperlipidemia 14. Sleep apnea 15. No Code No CPR No Vent All at Hospital course: This is an 87-year-old gentleman admitted with change in mental status, acute UTI with sepsis and multiple other medical issues including baseline dementia. Maintained on gentle IV fluid hydration, antibiotics. Family reports patient rapidly declining over the last 6 months with very poor quality of life. Case discussed at length with the and daughter. They both expressed wishes to be for patient to be discharged to [facility] and transitioned to hospice. Patient is being discharged to [facility] in a stable condition with guarded prognosis per family's requests. Physical Exam:VSS, patient is stuporous, CV: S1, S2. LUNGS: Bilateral bases diminished, occasional scattered rhonchi and crackles. ABD: Soft nontender positive bowel sounds. NERVOUS SYS: Generalized diffuse weakness. The impression and plan of care has been dictated as directed. : I performed a history and examination of this patient, discussed the same with the dictator. I agree with the dictator's note ,documented as a scribe. Any additional findings or plans will be noted. Time taken: 35 minutes Patient Condition at Discharge: Stable Plan - Discharge Summary Discharge Rx Participant: No New Discharge Prescriptions: New Cefuroxime Axetil [Ceftin] 500 mg PO BID #10 tab Continue Menthol [Biofreeze] 1 applic TOPICAL DAILY Albuterol Nebulized [Ventolin Nebulized] 2.5 mg INHALATION RT-Q6H PRN PRN Reason: Shortness Of Breath Acetaminophen [Tylenol] 650 mg PO Q6H PRN PRN Reason: Pain Memantine [Namenda] 10 mg PO BID Tamsulosin [Flomax] 0.4 mg PO DAILY Sertraline [Zoloft] 50 mg PO HS Pravastatin Sodium [Pravachol] 80 mg PO HS Medroxyprogesterone Acetate [Depo-Provera] 150 mg IM Q14D Isosorbide Mononitrate ER [Imdur] 15 mg PO DAILY Furosemide [Lasix] 20 mg PO DAILY Albuterol Nebulized [Ventolin Nebulized] 2.5 mg INHALATION RT-HS Magnesium Hydroxide [Milk of Magnesia] 2,400 mg PO DAILY PRN PRN Reason: Constipation Bisacodyl 10 mg RECTAL DAILY PRN PRN Reason: Constipation Aspirin 81 mg PO DAILY Protonix Packets 40 mg PO DAILY Discontinued [place]-3 Fatty Acids/Fish Oil [Fish Oil 1,000 mg Softgel] 2 cap PO BID Warfarin Sodium [Coumadin] 4 mg PO MOTUWETHFRSA Warfarin [Coumadin] 0.5 mg PO MOTUWETHFRSA Discharge Medication List Acetaminophen [Tylenol] 650 mg PO Q6H PRN 06/10/17 [History] Albuterol Nebulized [Ventolin Nebulized] 2.5 mg INHALATION RT-HS 06/10/17 [ History] Albuterol Nebulized [Ventolin Nebulized] 2.5 mg INHALATION RT-Q6H PRN 06/10/17 [ History] Furosemide [Lasix] 20 mg PO DAILY 06/10/17 [History] Isosorbide Mononitrate ER [Imdur] 15 mg PO DAILY 06/10/17 [History] Medroxyprogesterone Acetate [Depo-Provera] 150 mg IM Q14D 06/10/17 [History] Memantine [Namenda] 10 mg PO BID 06/10/17 [History] Menthol [Biofreeze] 1 applic TOPICAL DAILY 06/10/17 [History] Pravastatin Sodium [Pravachol] 80 mg PO HS 06/10/17 [History] Sertraline [Zoloft] 50 mg PO HS 06/10/17 [History] Tamsulosin [Flomax] 0.4 mg PO DAILY 06/10/17 [History] Aspirin 81 mg PO DAILY 08/24/17 [History] Bisacodyl 10 mg RECTAL DAILY PRN 08/24/17 [History] Magnesium Hydroxide [Milk of Magnesia] 2,400 mg PO DAILY PRN 08/24/17 [History] Protonix Packets 40 mg PO DAILY 08/24/17 [History] Cefuroxime Axetil [Ceftin] 500 mg PO BID #10 tab 08/28/17 [Rx] Follow up Appointment(s)/Referral(s): Arthur L[facility]pez Dr. PCP @[facility] [Other] - 3 Days Activity/Diet/Wound Care/Special Instructions: [facility] and transition to Hospice.
[2017-08-28 12:36] VITALS: BP 102/54; PULSE 62; TEMP 98
[2017-08-28 13:35] VITALS: BMI 19.1
[2017-08-28] MEDS: ASPIRIN 81 MG PO SCH (14:44)
[2017-08-28] MEDS: METHYL SALICYLATE/MENTHOL CREAM 5 OZ TOPICAL SCH (14:45)
[2017-08-28] MEDS: LISINOPRIL 10 MG TAB PO SCH (14:45)
[2017-08-28] MEDS: TAMSULOSIN 0.4 MG CAP.ER.24H PO SCH (14:45)
[2017-08-28] MEDS: MEMANTINE 10 MG TAB PO SCH (14:45)
[2017-08-28] MEDS: ISOSORBIDE MONONITRATE ER 15 MG TAB PO SCH (14:45)
== END 2017-08-28 16:49 | DRG 871 ==
LOC: EC 16:14 → 6SEL 19:23
PROVIDERS: ADMIT Hospitalist; ATTEND Hospitalist
DX: A41.59 Other Gram-negative sepsis (principal); G93.41 Metabolic encephalopathy; N17.9 Acute kidney failure, unspecified; E87.0 Hyperosmolality and hypernatremia; I48.2 Chronic atrial fibrillation; F03.90 Unspecified dementia, unspecified severity, without behavioral disturbance, psychotic disturbance, mood disturbance, and anxiety; N39.0 Urinary tract infection, site not specified; I13.0 Hypertensive heart and chronic kidney disease with heart failure and stage 1 through stage 4 chronic kidney disease, or unspecified chronic kidney disease; E86.0 Dehydration; I50.9 Heart failure, unspecified; E78.5 Hyperlipidemia, unspecified; J44.9 Chronic obstructive pulmonary disease, unspecified; I45.10 Unspecified right bundle-branch block; N18.3 Chronic kidney disease, stage 3 (moderate); Z51.5 Encounter for palliative care; Z66 Do not resuscitate; T45.515A Adverse effect of anticoagulants, initial encounter; G47.30 Sleep apnea, unspecified; R79.1 Abnormal coagulation profile; N42.9 Disorder of prostate, unspecified; K21.9 Gastro-esophageal reflux disease without esophagitis; Z79.82 Long term (current) use of aspirin; Z79.01 Long term (current) use of anticoagulants; Z79.899 Other long term (current) drug therapy; Z88.5 Allergy status to narcotic agent
CPT/HCPCS: 36415; 70450; 71046; 80048; 80053; 80306; 81001; 82550; 82553; 83605; 84484; 85025; 85610; 85730; 87040; 87077; 87086; 87186; 93005; 94640; 94760; 96361; 96374; 99285